=== PATIENT | male | born 1945 | race Two or more races ===

== ENCOUNTER 2020-06-15 10:28 | Outpatient (REF) | payer MEDICARE, OTHER, SELFPAY ==
--- NOTE | 2020-06-15 11:25 | XR_ITS ---
EXAMINATION: XR CHEST CLINICAL INFORMATION: Dyspnea. COMPARISON: None TECHNIQUE: 2 views of the chest were obtained. FINDINGS: No significant abnormality is noted involving the heart, lungs, mediastinum, bony thorax or soft tissues. XR/XR chest 2V IMPRESSION: No acute cardiopulmonary process.
== END 2020-06-15 10:29 | disposition home or self-care (01) ==
LOC: HO.XRAY 10:28
PROVIDERS: PCP Internal Medicine; Visit Provider Hospitalist
DX: R06.00 Dyspnea, unspecified (principal); G47.33 Obstructive sleep apnea (adult) (pediatric); J44.9 Chronic obstructive pulmonary disease, unspecified; Z99.89 Dependence on other enabling machines and devices
CPT/HCPCS: 71046; 99212

== ENCOUNTER → 2020-10-14 10:28 | Outpatient (BNVA) | payer MEDICARE, OTHER, SELFPAY | PROVIDERS: PCP Internal Medicine; Visit Provider Hospitalist | DX: J44.9 Chronic obstructive pulmonary disease, unspecified (principal); R06.00 Dyspnea, unspecified; G47.33 Obstructive sleep apnea (adult) (pediatric); Z99.89 Dependence on other enabling machines and devices; Z79.899 Other long term (current) drug therapy | CPT/HCPCS: 99212 ==

== ENCOUNTER → 2021-10-17 10:19 | Outpatient (BNVA) | payer MEDICARE, OTHER, SELFPAY | PROVIDERS: PCP Internal Medicine; Visit Provider Hospitalist | DX: G47.33 Obstructive sleep apnea (adult) (pediatric) (principal); J44.9 Chronic obstructive pulmonary disease, unspecified; J18.9 Pneumonia, unspecified organism; R91.1 Solitary pulmonary nodule; Z99.89 Dependence on other enabling machines and devices | CPT/HCPCS: 99212 ==

== ENCOUNTER → 2022-04-16 10:05 | Outpatient (BNVA) | payer MEDICARE, OTHER, SELFPAY | PROVIDERS: PCP Internal Medicine; Visit Provider Hospitalist | DX: G47.33 Obstructive sleep apnea (adult) (pediatric) (principal); J44.9 Chronic obstructive pulmonary disease, unspecified; R06.00 Dyspnea, unspecified; R91.1 Solitary pulmonary nodule; J18.9 Pneumonia, unspecified organism; Z99.89 Dependence on other enabling machines and devices | CPT/HCPCS: 99212 ==

== ENCOUNTER → 2022-08-08 14:22 | Outpatient (REF) | payer MEDICARE, OTHER, SELFPAY | LOC: HO.SL 14:22 | PROVIDERS: Visit Provider Hospitalist | DX: G47.33 Obstructive sleep apnea (adult) (pediatric) (principal); Z99.89 Dependence on other enabling machines and devices | CPT/HCPCS: 95806; 95811 ==

== ENCOUNTER → 2022-08-14 11:13 | Outpatient (BNVA) | payer MEDICARE, OTHER, SELFPAY | PROVIDERS: PCP Internal Medicine; Visit Provider Hospitalist | DX: G47.33 Obstructive sleep apnea (adult) (pediatric) (principal); J44.9 Chronic obstructive pulmonary disease, unspecified; J18.9 Pneumonia, unspecified organism; R06.00 Dyspnea, unspecified; R91.1 Solitary pulmonary nodule; Z99.89 Dependence on other enabling machines and devices | CPT/HCPCS: 99212 ==

== ENCOUNTER → 2022-08-24 19:30 | Outpatient (REF) | payer MEDICARE, OTHER, SELFPAY | LOC: HO.SL 19:30 | PROVIDERS: Visit Provider Hospitalist | DX: G47.33 Obstructive sleep apnea (adult) (pediatric) (principal); Z99.89 Dependence on other enabling machines and devices | CPT/HCPCS: 95811 ==

== ENCOUNTER → 2022-11-28 10:38 | Outpatient (BNVA) | payer MEDICARE, OTHER, SELFPAY | PROVIDERS: PCP Internal Medicine; Visit Provider Neurological Surgery | DX: M48.061 Spinal stenosis, lumbar region without neurogenic claudication (principal) | CPT/HCPCS: 99212 ==

== ENCOUNTER → 2022-12-06 14:14 | Outpatient (BNVA) | payer MEDICARE, OTHER, SELFPAY | PROVIDERS: PCP Internal Medicine; Visit Provider Hospitalist | DX: G47.33 Obstructive sleep apnea (adult) (pediatric) (principal); J44.9 Chronic obstructive pulmonary disease, unspecified; R06.00 Dyspnea, unspecified; R91.1 Solitary pulmonary nodule; E66.01 Morbid (severe) obesity due to excess calories; Z68.31 Body mass index [BMI] 31.0-31.9, adult; Z99.89 Dependence on other enabling machines and devices; Z79.899 Other long term (current) drug therapy | CPT/HCPCS: 99212 ==

== ENCOUNTER 2023-07-26 13:36 | Outpatient (AMB) | payer MEDICARE, OTHER, SELFPAY ==
[2023-07-26 13:47] VITALS: PULSE 78; O2SAT 94; BMI 31.9
--- NOTE | 2023-07-26 13:47 | MHC.OFFVIS ---
Intake Vital Signs 07/26/23 13:47 Height 5 ft 9 in Weight 215 lb 13.321 oz BMI 31.9 Pulse 78 Pulse Source Pulse Oximeter Pulse Oximetry (%) 94 Oxygen Delivery Method Room Air Intake Visit Reasons: josephine Relay Dispatcher Required: No Allergies No Known Allergies Allergy (Verified 07/26/23 13:49) HPI HPI Comments History of Present Illness Details The patient is a 77-year-old gentleman with a known history of morbid obesity, significant back pain and knee discomfort along with obstructive sleep apnea on CPAP. Apparently he has been struggling with the CPAP. Has been malfunctioning in breaking down multiple times. Recently he did get a loaner from his [employer] until finally get his CPAP back. The CPAP therapy continues to be affecting beneficial. Although he feels like he is not getting enough pressures at this time. We did request a download in appears that his AHI is below 5 and seems to be tolerating the CPAP well. In addition to that he does complaint of dyspnea on exertion. He has been working outside in a lot of projects and has been noticing that he has been having to stop due to his shortness of breath. Does use Advair twice a day and does have a rescue inhaler that he uses as needed. At this point he does not appear to have any significant wheezing although he may have some component of bronchospasms with the changes in the weather. Therefore, I will optimize her respiratory therapy to [facility]. The patient will go for chest x-ray and will reassess his condition in 2-3 months. 10/17/2021 the patient is here for a pulmonary follow-up visit. Since we last spoke sometime in August the patient started developing some right-sided pleuritic chest discomfort. He went to waiting at [facility]. There he did undergo a CT scan of the chest that was personally by me. Appears to have what appears to be airspace disease in the right base along with nodular densities in that area along with small pleural effusion which appears to be reactive. He was diagnosed with pneumonia the patient was treated with antibiotics. Patient did start feeling better the pain did almost completely resolved. in the meantime the patient started developing again worsening cough and chest congestion again. He is concerned the symptoms are coming back so quickly. He is also concerned because next week he is going to have hand surgery. Therefore go ahead and treated for bronchitis at home. Hold off on any prednisone since she is going to have surgery. Although I will increase his Trelegy to the maximum dose of 200. based on the CT scan findings suggesting the pneumonia and a nodular density measuring more than a cm in size will go ahead and repeat the CT scan in 3 months time to make sure there is resolution of the process. If the process is there or concerning appearance additional diagnostic interventions will be requested. In the meantime the patient continues use CPAP. The CPAP therapy has been affecting beneficial. However he still waiting for his respiratory ext replacement machine. 04/16/2022 the patient is here for a pulmonary follow-up visit. Overall he feels better from a respiratory status. He still complaining of a cough productive in nature. [id number] severity. The patient did have a CT scan of the chest that was personally by me back in December demonstrating interval improvement of the airspace disease. 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 Explained to him that this could be resulting in some coughing. The patient has been struggling with his sleep apnea. The CPAP therapy has been very effective for him. However, his machine is no longer working. The patient needs to have a replacement machine at this time. He does have a dream station that he is concerned about the recall. He does not want to use any [employer] machine at this time. I will go ahead and submit a new order for a new CPAP machine. In addition to this, the patient cut his finger on his right hand while he was cleaning up last base. He had significant bleeding that was on Saturday. He was reluctant to go to the ER so therefore his but at tight pressure dressing because of the bleeding. Head and removed the dressing today and was still extensively bleeding 3 days after the event. The area was significantly open. I cleaned it with some Betadine and then Steri-Strips to hold it close in addition to some dressing. I did recommend that he go to the ER immediately to have that looked that further. He was going to do so. 08/14/2022 the patient is here for a pulmonary follow-up visit. The patient overall is feeling better. He was recently hospitalized at [facility] with congestive heart failure. His BNP was significantly elevated. His chest x-ray demonstrated perihilar congestion in bilateral pulmonary edema. His echocardiogram demonstrated a valvular disease including moderate mitral stenosis and [id number] aortic regurgitation. His EF was preserved. He was diuresed and had a significant amount of weight loss between 20-30 lb per the patient's statement. Patient overall is feeling better. He is still struggling with his sleep. His CPAP machine is no longer working. The patient definitely needs to CPAP because of his significant cardiovascular risk factors. He did have a home sleep study which we personally reviewed. The patient had an AHI of 58 with significant hypoxia and significant tachycardia. He does desaturate below 88% for about an hour and half. Therefore in view of his very severe study I do believe that a titration study will be warranted in order to make sure that we provide him with the best PAP therapy and to see if he still needs oxygen supplementation. Will try to request an urgent study and follow up once available. In the meantime he continues with respiratory therapy. Seems to be stable in using his medications with good adherence. 07/26/2023 the patient is here for a pulmonary follow-up visit. Overall the patient has been doing better from a respiratory status. He is using his APAP. He has been tolerating it well. We did download the machine. It appears that his AHI the 1.8. He is tolerating his mask and having less mouth dryness. He is also using the Trelegy inhale at the lower doser. No issues with thrush. No recent exacerbations. He has had significant weight loss after having a bowel rection. He is doing better at this time. [facility] Medical History (Updated 04/16/22 @ 13:03 by Kike Ballard MD) Pulmonary nodule Pneumonia JOSEPHINE on CPAP Asthma-COPD overlap syndrome Dyspnea Social History (Updated 10/17/21 @ 10:42 by GENO Klein) Patient Tobacco Use Status: Former Tobacco user Tobacco use type: Cigarette Years Smoked: 10+ years Review of Systems Const Denies daytime sleepiness, Denies night sweats, Denies stops breathing during sleep and Reports weight loss ENT Denies change in voice, Denies lip swelling, Denies mouth pain, Reports nasal congestion, Reports nasal discharge and Denies tongue swelling Card Denies chest pain and Reports dyspnea on exertion Resp Denies change in phlegm color, Denies chest congestion, Reports cough, Reports dyspnea on exertion and Denies wheezing GI Denies abdominal pain Musc Denies no additional complaints Skin/Breast Reports bleeding lesions Neuro Denies Neuro-related abnormal movements Psych Denies no additional complaints Alex/Lymph Denies easy bleeding and Denies lymphadenopathy Aller/Immun Denies lip swelling, Denies tongue swelling and Denies wheezing Physical Exam Vital Signs: Last Vital Signs Pulse 78 07/26/23 13:47 Pulse Ox 94 07/26/23 13:47 Oxygen Delivery Method Room Air 07/26/23 13:47 BMI result Body Mass Index 31.9 Const General: alert Neck Neck: Yes normal visual inspection, Yes full ROM and Yes no lymphadenopathy Chest Chest palpation & inspection: normal inspection of the chest Resp Auscultation: no rhonchi and diminished lung sounds Cardio Rate: regular rate Rhythm: regular rhythm Heart sounds: S1 normal heart sound present and S2 normal heart sound present GI Palpation (GI): Soft to palpation and nontender Auscultation: normal bowel sounds General: Yes no CVA tenderness Back/Spine/Pelvis Back: no CVA tenderness Skin General skin exam: rashes and/or lesions noted Assessment & Plan Assessment & Plan (1) JOSEPHINE on CPAP: Code(s): G47.33 - Obstructive sleep apnea (adult) (pediatric); Z99.89 - Dependence on other enabling machines and devices (2) Asthma-COPD overlap syndrome: Code(s): J44.9 - Chronic obstructive pulmonary disease, unspecified (3) Dyspnea: Code(s): R06.00 - Dyspnea, unspecified Qualifiers: Dyspnea type: dyspnea on exertion Qualified Code(s): R06.00 - Dyspnea, unspecified (4) Pulmonary nodule: Code(s): R91.1 - Solitary pulmonary nodule Plan continue Trelegy 100 RASHAUN as needed diuresis as tolerated Low sodium diet continue APAP 6-16 AHI is good, doing very well F/U 12 months Coding Level of Care Code Est Pt Level 4 (35923) Diagnoses JOSEPHINE on CPAP G47.33; Z99.89 Asthma-COPD overlap syndrome J44.9 Dyspnea on exertion R06.00 Dyspnea type: dyspnea on exertion Pulmonary nodule R91.1 Time Spent (min) 16
== END 2023-07-26 14:07 | disposition home or self-care (01) ==
PROVIDERS: PCP Internal Medicine; Visit Provider Hospitalist
DX: G47.33 Obstructive sleep apnea (adult) (pediatric) (principal); Z99.89 Dependence on other enabling machines and devices; J44.9 Chronic obstructive pulmonary disease, unspecified; R06.00 Dyspnea, unspecified; R91.1 Solitary pulmonary nodule
CPT/HCPCS: 99214

== ENCOUNTER → 2023-07-26 13:36 | Outpatient (BNVA) | payer MEDICARE, OTHER, SELFPAY | PROVIDERS: PCP Internal Medicine; Visit Provider Hospitalist | DX: G47.33 Obstructive sleep apnea (adult) (pediatric) (principal); J44.9 Chronic obstructive pulmonary disease, unspecified; R06.00 Dyspnea, unspecified; R91.1 Solitary pulmonary nodule; Z79.899 Other long term (current) drug therapy; Z99.89 Dependence on other enabling machines and devices | CPT/HCPCS: 99212 ==

== ENCOUNTER 2024-07-01 10:43 | Outpatient (AMB) | payer MEDICARE, OTHER, SELFPAY ==
--- NOTE | 2024-07-01 10:44 | MHC.OFFVIS ---
Vital Signs 07/01/24 10:45 Weight 223 lb 12.307 oz BP 122/60 Blood Pressure Location Rt brachial Position Sitting Pulse 74 Pulse Source Pulse Oximeter Pulse Oximetry (%) 94 Oxygen Delivery Method Room Air Intake Visit Reasons: josephine Allergies rosuvastatin Adverse Reaction (Severe, Verified 07/01/24 10:52) Muscle Pain Medication List - Last Reconciled 07/01/24 by Vicki Hair LPN albuterol sulfate 90 mcg/actuation 1 puff PO Q4H PRN aspirin 81 mg PO DAILY CPAP (CPAP Machine/Device) As directed dutasteride 0.5 mg PO DAILY empagliflozin (Jardiance) 10 mg PO DAILY exenatide microspheres ER mg subcut QWEEK uucbkjwkpcs-wrqzuexfo-snkfjpvh 100-62.5-25 mcg (Trelegy Ellipta) 1 ea PO DAILY furosemide 20 mg PO DAILY loratadine (Claritin) 10 mg PO DAILY lorazepam 0.5 mg PO BEDTIME PRN losartan 25 mg PO DAILY metoprolol tartrate 50 mg PO BID montelukast (Singulair) 10 mg PO BEDTIME 30 days omeprazole mg PO sertraline 50 mg PO DAILY tamsulosin mg PO HPI Comments Details: The patient is a 78-year-old gentleman with a known history of morbid obesity, significant back pain and knee discomfort along with obstructive sleep apnea on CPAP. Apparently he has been struggling with the CPAP. Has been malfunctioning in breaking down multiple times. Recently he did get a loaner from his [email or web address] until finally get his CPAP back. The CPAP therapy continues to be affecting beneficial. Although he feels like he is not getting enough pressures at this time. We did request a download in appears that his AHI is below 5 and seems to be tolerating the CPAP well. In addition to that he does complaint of dyspnea on exertion. He has been working outside in a lot of projects and has been noticing that he has been having to stop due to his shortness of breath. Does use Advair twice a day and does have a rescue inhaler that he uses as needed. At this point he does not appear to have any significant wheezing although he may have some component of bronchospasms with the changes in the weather. Therefore, I will optimize her respiratory therapy to Trelegy. The patient will go for chest x-ray and will reassess his condition in 2-3 months. 10/17/2021 the patient is here for a pulmonary follow-up visit. Since we last spoke sometime in August the patient started developing some right-sided pleuritic chest discomfort. He went to waiting at [facility]. There he did undergo a CT scan of the chest that was personally by me. Appears to have what appears to be airspace disease in the right base along with nodular densities in that area along with small pleural effusion which appears to be reactive. He was diagnosed with pneumonia the patient was treated with antibiotics. Patient did start feeling better the pain did almost completely resolved. in the meantime the patient started developing again worsening cough and chest congestion again. He is concerned the symptoms are coming back so quickly. He is also concerned because next week he is going to have hand surgery. Therefore go ahead and treated for bronchitis at home. Hold off on any prednisone since she is going to have surgery. Although I will increase his Trelegy to the maximum dose of 200. based on the CT scan findings suggesting the pneumonia and a nodular density measuring more than a cm in size will go ahead and repeat the CT scan in 3 months time to make sure there is resolution of the process. If the process is there or concerning appearance additional diagnostic interventions will be requested. In the meantime the patient continues use CPAP. The CPAP therapy has been affecting beneficial. However he still waiting for his respiratory ext replacement machine. 04/16/2022 the patient is here for a pulmonary follow-up visit. Overall he feels better from a respiratory status. He still complaining of a cough productive in nature. Teii-va-ggobqkmm severity. The patient did have a CT scan of the chest that was personally by me back in December demonstrating interval improvement of the airspace disease. 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 Explained to him that this could be resulting in some coughing. The patient has been struggling with his sleep apnea. The CPAP therapy has been very effective for him. However, his machine is no longer working. The patient needs to have a replacement machine at this time. He does have a dream station that he is concerned about the recall. He does not want to use any Respironics machine at this time. I will go ahead and submit a new order for a new CPAP machine. In addition to this, the patient cut his finger on his right hand while he was cleaning up last base. He had significant bleeding that was on Saturday. He was reluctant to go to the ER so therefore his but at tight pressure dressing because of the bleeding. Head and removed the dressing today and was still extensively bleeding 3 days after the event. The area was significantly open. I cleaned it with some Betadine and then Steri-Strips to hold it close in addition to some dressing. I did recommend that he go to the ER immediately to have that looked that further. He was going to do so. 08/14/2022 the patient is here for a pulmonary follow-up visit. The patient overall is feeling better. He was recently hospitalized at [facility] with congestive heart failure. His BNP was significantly elevated. His chest x-ray demonstrated perihilar congestion in bilateral pulmonary edema. His echocardiogram demonstrated a valvular disease including moderate mitral stenosis and iqtr-fk-vxqihbic aortic regurgitation. His EF was preserved. He was diuresed and had a significant amount of weight loss between 20-30 lb per the patient's statement. Patient overall is feeling better. He is still struggling with his sleep. His CPAP machine is no longer working. The patient definitely needs to CPAP because of his significant cardiovascular risk factors. He did have a home sleep study which we personally reviewed. The patient had an AHI of 58 with significant hypoxia and significant tachycardia. He does desaturate below 88% for about an hour and half. Therefore in view of his very severe study I do believe that a titration study will be warranted in order to make sure that we provide him with the best PAP therapy and to see if he still needs oxygen supplementation. Will try to request an urgent study and follow up once available. In the meantime he continues with respiratory therapy. Seems to be stable in using his medications with good adherence. 07/26/2023 the patient is here for a pulmonary follow-up visit. Overall the patient has been doing better from a respiratory status. He is using his APAP. He has been tolerating it well. We did download the machine. It appears that his AHI the 1.8. He is tolerating his mask and having less mouth dryness. He is also using the Trelegy inhale at the lower doser. No issues with thrush. No recent exacerbations. He has had significant weight loss after having a bowel rection. He is doing better at this time. 07/01/2024 the patient is here for a pulmonary follow-up visit. Overall the he patient is doing well. The CPAP therapy has been affecting beneficial. He does use it more than 4 hours a night. The patient's AHI is 5.5 although 1.5 events per hour were central. The patient's machine is set up 6-16 and he seems to require additional pressures. Therefore I did adjust the machine slightly higher at 8-18. He also has issues with his nostril on the left were closes because that he had an injury to that nostril. So therefore he has been setting up his nostril with a plastic stent like piece she keep the nostril open. I did not advise him to continue doing that. Will switch him to the PEEP 30 I mask and therefore with the nasal pillows he will be able to stent that nostril open with the actual mask. From a breathing standpoint seems to be doing well on the Trelegy. Seems not to require his rescue inhaler so therefore will continue that Trelegy daily as it is helping his respiratory symptoms. He continues to lose weight which is good otherwise he feels healthy. The last imaging study that we had was back in 2021. Therefore, in 6 months when he returns will request a chest x-ray. [facility] Medical History (Updated 04/16/22 @ 13:03 by Kike Ballard MD) Pulmonary nodule Pneumonia JOSEPHINE on CPAP Asthma-COPD overlap syndrome Dyspnea Social History (Updated 10/17/21 @ 10:42 by GENO Klein) Patient Tobacco Use Status: Former Tobacco user Tobacco use type: Cigarette Years Smoked: 10+ years Review of Systems Const Denies daytime sleepiness, Denies night sweats, Denies stops breathing during sleep and Reports weight loss ENT Denies change in voice, Denies lip swelling, Denies mouth pain, Reports nasal congestion, Reports nasal discharge and Denies tongue swelling Card Denies chest pain and Reports dyspnea on exertion Resp Denies change in phlegm color, Denies chest congestion, Reports cough, Reports dyspnea on exertion and Denies wheezing GI Denies abdominal pain Musc Denies no additional complaints Skin/Breast Reports bleeding lesions Neuro Denies Neuro-related abnormal movements Psych Denies no additional complaints Alex/Lymph Denies easy bleeding and Denies lymphadenopathy Aller/Immun Denies lip swelling, Denies tongue swelling and Denies wheezing Physical Exam Vital Signs: Last Vital Signs Pulse 74 12/04/24 10:45 BP 122/60 07/01/24 10:45 Pulse Ox 94 07/01/24 10:45 Oxygen Delivery Method Room Air 07/01/24 10:45 Const General: alert Neck Neck: Yes normal visual inspection, Yes full ROM and Yes no lymphadenopathy Chest Chest palpation & inspection: normal inspection of the chest Resp Auscultation: no rhonchi and diminished lung sounds Cardio Rate: regular rate Rhythm: regular rhythm Heart sounds: S1 normal heart sound present and S2 normal heart sound present GI Palpation (GI): Soft to palpation and nontender Auscultation: normal bowel sounds General: Yes no CVA tenderness Back/Spine/Pelvis Back: no CVA tenderness Skin General skin exam: rashes and/or lesions noted Assessment & Plan Assessment & Plan (1) JOSEPHINE on CPAP: Code(s): G47.33 - Obstructive sleep apnea (adult) (pediatric); Z99.89 - Dependence on other enabling machines and devices Category: Medical (2) Asthma-COPD overlap syndrome: Code(s): J44.9 - Chronic obstructive pulmonary disease, unspecified Category: Medical (3) Dyspnea: Code(s): R06.00 - Dyspnea, unspecified Category: Medical Qualifiers: Dyspnea type: dyspnea on exertion Qualified Code(s): R06.00 - Dyspnea, unspecified (4) Pulmonary nodule: Code(s): R91.1 - Solitary pulmonary nodule Category: Medical Plan continue Trelegy 100 RASHAUN as needed diuresis as tolerated Low sodium diet adjusted APAP 6-16->8-18, recommenting p30i mask CXR prior to next visit F/U 8-12 months Orders: Orders XR chest 2V Today J44.9 - Chronic obstructive pulmonary disease, unspecified Coding Level of Care Code Est Pt Level 4 (33898) Diagnoses JOSEPHINE on CPAP G47.33; Z99.89 Asthma-COPD overlap syndrome J44.9 Dyspnea on exertion R06.00 Dyspnea type: dyspnea on exertion Pulmonary nodule R91.1 Time Spent (min) 17
[2024-07-01 10:45] VITALS: BP 122/60; PULSE 74; O2SAT 94
== END 2024-07-01 11:14 | disposition home or self-care (01) ==
PROVIDERS: PCP Internal Medicine; Visit Provider Hospitalist
DX: G47.33 Obstructive sleep apnea (adult) (pediatric) (principal); Z99.89 Dependence on other enabling machines and devices; J44.9 Chronic obstructive pulmonary disease, unspecified; R06.00 Dyspnea, unspecified; R91.1 Solitary pulmonary nodule
CPT/HCPCS: 99214

== ENCOUNTER → 2024-07-01 10:43 | Outpatient (BNVA) | payer MEDICARE, OTHER, SELFPAY | PROVIDERS: PCP Internal Medicine; Visit Provider Hospitalist | DX: J44.9 Chronic obstructive pulmonary disease, unspecified (principal); R06.00 Dyspnea, unspecified; R91.1 Solitary pulmonary nodule; G47.33 Obstructive sleep apnea (adult) (pediatric); Z99.89 Dependence on other enabling machines and devices | CPT/HCPCS: 99212 ==

== ENCOUNTER 2025-03-11 13:10 | Outpatient (AMB) | payer MEDICARE, SELFPAY ==
--- OUTSIDE RECORDS SUMMARY | 2024-06-17 10:30 | XMS_ITS | Encounter Summary ---
Author Name [facility] Organization [facility] Address [address] [place] [address] Care Team Providers Care Senior Mechanical Engineer Name Role Phone EDER ALVA Primary Care Provider Unavail able Insurance Providers: All historical and current Section Date Range: From patient's date of to the date document was created. This section includes the names of all active insurance providers for the patient. Insurance Provider Type of Coverage Plan Name Start of Policy Coverage End of Policy Coverage Group Number Member ID Insurance Provider's Telephone Number Policy Turcios's Name Patient's Relationship to Policy Turcios MEDICARE (WNR) MEDICARE (M) PART A Jul 29, 2010 PART A [id number] [phone] NITA, NUNU PATIENT MEDICARE (WNR) MEDICARE (M) PART B Jul 29, 2010 PART B [id number] NITA, NUNU PATIENT MEDICARE (WNR) MEDICARE (M) PART A Jul 29, 2010 PART A [id number] [phone] NITA, NUNU PATIENT MEDICARE (WNR) MEDICARE (M) PART B Jul 29, 2010 PART B [id number] NITA, NUNU PATIENT [employer] LOCAL [phone] PREFERRED PROVIDER ORGANIZAT ION (PPO) LOCAL [phone] Apr 23, 2004 [id number] NITA, NUNU PATIENT Selected Encounter This section includes the information on record at [place] for the Encounter. Date/Time Encounter Type Encounter Description Reason Provider Source Jun 17, 2024 02:30 PM OFFICE O/P EST MOD 30 MIN [facility] - IND ICD-10-CM F43.12 Post-traumatic stress disorder, chronic WENDI CHILDRESSSHELTON Parkinson Collette Encounter Template Text not used by [place] Assessments - Encounter Diagnoses This section includes the primary and secondary diagnoses documented for the Encounter. Date/Time Primary/Secondary Diagnosis Diagnosis Name Provider Source Jun 17, 2024 03:05 PM PRIMARY Post-traumatic stress disorder, chronic [facility] CHIL[facility] Plan of Treatment: Future Appointments (+ 6 months) and Future Tests (+/- 45 days) The Plan of Treatment section includes future care activities for the patient from all [place] [facility]. This section includes future appointments and future orders which are active, pending or scheduled. Future Appointments This section includes appointments that were scheduled to occur 6 months from the date of the Encounter, up to a maximum of 20 appointments. The data comes from all [place] treatment facilities. Appointment Date/Time Appointment Type Appointme nt Facility Name Aug 25, 2024 03:15 PM [facility]UL[facility]ORY [place]ICINE [place] [facility] [place] [facility] Aug 27, 2024 12:30 PM AMBULATORY - MEDICINE [facility] [place] [facility] Aug 31, 2024 01:15 PM AMBULATORY - MEDICINE [facility] [place] [facility] Aug 31, 2024 01:30 PM AMBULATORY - MEDICINE [facility] [place] [facility] Sep 15, 2024 10:00 AM AMBULATORY - MEDICINE [facility] [place] [facility] Sep 29, 2024 09:00 AM AMBULATORY - MEDICINE [facility] [place] [facility] Oct 16, 2024 02:00 PM AMBULATORY - [facility]RY [facility] Oct 20, 2024 01:00 PM AMBULATORY - MEDICINE [facility] Nov 03, 2024 11:00 AM AMBULATORY - MEDICINE [facility] [place] [facility] November 27, 2024 11:00 AM AMBULATORY - MEDICINE [facility] [place] [facility] December 15, 2024 09:30 AM AMBULATORY - MEDICINE [facility] [place] [facility] Social History: Smoking Status (Most current) and Tobacco Use (All prior to encounter date) This section includes the most current, and the historical, smoking and tobacco- related health factors from the [place] facility where the Encounter took place. Current Smoking Status This section includes the most current smoking, or tobacco-related health factor, from the [place] facility where the Encounter took place. Date/Time Current Smoking Status Comment Facil ity Feb 10, 2024 02:00 PM VA-TOBACCO FORMER USER [facility] Tobacco Use History This section includes a history of the smoking, or tobacco-related health factors, that were collected on or before the date of the Encounter. The data comes from the [place] facility where the Encounter took place. Date/Time Smoking Status/Tobacco Use Comment F acility Feb 10, 2024 02:00 PM VA-TOBACCO QUIT 15 YRS OR MORE [facility] Jan 01, 2023 03:00 PM VA-TOBACCO FORMER USER [facility] Jan 01, 2023 03:00 PM VA-TOBACCO QUIT 15 YRS OR MORE [facility] Aug 11, 2020 11:30 AM VA-TOBACCO FORMER USER [facility] Aug 11, 2020 11:30 AM VA-TOBACCO QUIT 15 YRS OR MORE [facility] Mar 23, 2019 11:21 AM VA-TOBACCO FORMER USER [facility] Mar 23, 2019 11:21 AM VA-TOBACCO QUIT 5 TO < 15 YRS [facility] May 02, 2018 11:30 AM VA-TOBACCO FORMER USER [facility] May 02, 2018 11:30 AM VA-TOBACCO QUIT 5 TO < 15 YRS [facility] Jul 09, 2017 10:50 AM QUIT TOBACCO USE > 7 YEARS AGO [facility] May 25, 2016 10:04 AM QUIT TOBACCO USE > 7 YEARS AGO [facility] Feb 14, 2016 04:42 PM QUIT TOBACCO USE 1 -7 YEARS AGO quit 6 yrs ago [facility] Dec 27, 2014 09:04 AM QUIT TOBACCO USE > 7 YEARS AGO [facility] Oct 27, 2013 09:06 AM QUIT TOBACCO USE 1 -7 YEARS AGO [facility] Oct 07, 2012 08:55 AM QUIT TOBACCO USE 1 -7 YEARS AGO [facility] Jul 17, 2012 08:51 AM QUIT TOBACCO USE 1 -7 YEARS AGO [facility] Sep 21, 2010 09:07 AM QUIT TOBACCO USE 1 -7 YEARS AGO [facility] Aug 30, 2009 08:29 AM QUIT TOBACCO USE 1 -7 YEARS AGO quit four years ago. [facility] Aug 19, 2008 02:00 PM QUIT TOBACCO USE 1 -7 YEARS AGO [facility] Dec 29, 2007 01:19 PM QUIT TOBACCO USE IN PAST YEAR [facility] May 26, 2007 09:43 AM V1-PT DECLINES REF TO TOBACCO CESS PRGM [facility] May 26, 2007 09:43 AM V1-PT DECLINES TOB ACCO CESSATION MEDS [facility] May 26, 2007 09:43 AM V1-PT READY TO LIEN T TOBACCO USE [facility] Mar 19, 2007 10:44 AM CURRENT SMOKER Currently 1/2 pk daily. [facility] Mar 01, 2006 02:10 PM QUIT TOBACCO USE 1 -7 YEARS AGO [facility] Jun 30, 2003 11:59 AM QUIT TOBACCO USE IN PAST Y EAR Not smoking todate. [facility] Nov 05, 2001 03:19 PM QUIT TOBACCO USE IN PAST YEAR [facility] Encounter Notes: All associated encounter notes This section contains the clinical notes associated to the Encounter. Date/Time Encounter Note(s) Provider Source Jun 17, 2024 06:38 PM MENTAL HEALTH CHYNA TMENT PLAN NOTE: LOCAL TITLE: MH TREATMENT PLAN STANDARD TITLE: MENTAL HEALTH TREATMENT PLAN NOTE DATE OF NOTE: JUN 17, 2024@18:38:10 ENTRY DATE: JUN 17, 2024@18:38:53 AUTHOR: ARIES CHILDRESS EXP COSIGNER: URGENCY: STATUS: COMPLETED MH TREATMENT PLAN - May, @ 06:38PM Visit Date: May, @ 14:30 - BRAN/GUILHERME/SALMA/MONROE CLAY GRINDER: ARIES CHILDRESS / [place] MARTA Lechuga TREATMENT PLAN: Problem: ptsd/depression/anxiety Status: ACTIVE Goal: maintain improved ptsd/depression/anxiety symptoms Status: ACTIVE Objective: maintain improved ptsd/depression/anxiety symptoms, as measured by pt report Status: ACTIVE Intervention: psychopharm and encourage psychotherapy Status: ACTIVE Discipline: SPO-MHC Time Frame: PRN Providers: : PSYCHIATRIST DISCIPLINE: SPOPC-MHC Entered Treatment: 04/26/2020 @ 12:16PM Review Date: 05/25/2022 Anticipated Discharge: None INTERDISCIPLINARY TEAM: ARIES CHILDRESS: PSYCHIATRIST COMMUNICATION: Relevant treatment options, including evidence-based interventions, were considered and discussed with the [facility]. YES A copy of the treatment plan was given to the [facility]. NO Risks, benefits, and potential complications were discussed with the [facility]. YES /gilebrto/ ARIES CHILDRESS MD STAFF PSYCHIATRIST Signed: 06/17/2024 18:38 [facility] CHILDRESS [facility] Jun 17, 2024 02:36 PM PSYCHIATRY NOTE: LOCAL TITLE: PSYCHIATRY NOTE STANDARD TITLE: PSYCHIATRY NOTE DATE OF NOTE: JUN 17, 2024@14:36 ENTRY DATE: JUN 17, 2024@14:36:46 AUTHOR: ARIES CHILDRESS EXP COSIGNER: URGENCY: STATUS: COMPLETED 30 min for encounter, including chart review, interview, charting chart reviewed Patient seen alone and with his , who helps patient with medication. Patient stable, less stress lately. Good mood. Denies depression. Affect bright, appropriate. Anxiety and PTSD symptoms improved. He denies SI and violent ideation. No h/o psychotic symptoms. Well organized. No paranoid or delusional content presented. Future oriented. Speech normal/fluent. Cognitive exam grossly unchanged/intact. Has interests. Pleasant, talkative. Usual good sense of humor, which remains a good coping strategy for patient. No slowing noted. Good hygiene. Another discussion about the psych medication, and pt reports good response and well tolerated, wants to keep the same. See below. He denies psych med side effects. Denies daytime sedation. Reports psych med compliance. Denies alcohol and drug use; except previously reported occasional gummy/cannabis As noted previously, pt's is very supportive Active problems - Computerized Problem List is the source for the followin. Exposure to potentially hazardous substance ([facility] [id number]) 2. Allergic Rhinitis ([facility] [id number]) 3. COPD - Chronic Obstructive Pulmonary Disease ([facility] 05350027) 4. Benign Prostatic Hypertrophy with Outflow Obstruction ([facility] [id number]) 5. History of male erectile disorder 6. Obstructive sleep apnea syndrome 7. History of polyp of colon 8. Dyspnea on exertion 9. Old myocardial infarction 10. Panic disorder 11. Diabetes mellitus (SNOMED CT 02646138) 12. Obesity (SNOMED CT 335544236) 13. Impaired Fasting Glucose 14. Benign essential hypertension (SNOMED CT 2654703) 15. Dysthymia (or Depressive neurosis) 16. Hyperlipidemia (SNOMED CT 72885807) 17. Tinnitus * 18. Tear of medial cartilage or meniscus of knee, current 19. Insomnia with sleep apnea 20. Tobacco dependence, in Remission 21. Osteoarthritis (SNOMED CT 211737285) 22. Rotator Cuff Tear 23. Dermatitis, Atopic 24. Puri's esophagus 25. H/o Sleep Apnea 26. H/o Exposure to agent [place] 27. Hypertrophy (Benign) of Prostate without Urinary obstruction 28. Allergic Rhinitis 29. Posttraumatic stress disorder (SNOMED CT 58193827) Active Outpatient Medications (including Supplies): Active Outpatient Medications Status ======= 1) MONTELUKAST NA 10MG TAB TAKE ONE TABLET BY MOUTH ONCE ACTIVE DAILY FOR ASTHMA 2) SERTRALINE HCL 100MG TAB TAKE ONE AND ONE-HALF ACTIVE TABLETS BY MOUTH ONCE DAILY Active Non-VA Medications Status ======= 1) Non-VA ALBUTEROL 90MCG (CFC-F) 200D ORAL INHL 2 PUFFS ACTIVE BY MOUTH EVERY 6 HOURS NEEDED 2) Non-VA ASPIRIN 81MG EC TAB 81MG BY MOUTH DAILY ACTIVE 3) Non-VA BUDESONIDE (EQV-UCERIS)PA-F TAB,SA BY ACTIVE MOUTH 4) Non-VA COENZYME Q10 CAP/TAB BY MOUTH ACTIVE 5) Non-VA DULAGLUTIDE 1.5MG/0.5ML INJ PEN 1.5MG ACTIVE SUBCUTANEOUSLY ONCE A WEEK 6) Non-VA EMPAGLIFLOZIN TAB,ORAL BY MOUTH ACTIVE 7) Non-VA EVOLOCUMAB (REPATHA) PA-F INJ,SOLN ACTIVE SUBCUTANEOUSLY 8) Non-VA FUROSEMIDE TAB BY MOUTH ACTIVE 9) Non-VA GABAPENTIN TAB BY MOUTH ACTIVE 10) Non-VA HYDROXYCHLOROQUINE SULFATE TAB BY MOUTH ACTIVE 11) Non-VA LORATADINE 10MG TAB 10MG BY MOUTH ONCE DAILY ACTIVE 12) Non-VA LOSARTAN POTASSIUM TAB BY MOUTH ACTIVE 13) Non-VA MELATONIN 5MG CAP/TAB 5MG BY MOUTH AT BEDTIME ACTIVE NEEDED 14) Non-VA MELOXICAM TAB BY MOUTH ACTIVE 15) Non-VA METFORMIN HCL TAB,ORAL BY MOUTH ACTIVE 16) Non-VA METOPROLOL TARTRATE 25MG TAB 25MG BY MOUTH ACTIVE TWICE DAILY 17) Non-VA OMEPRAZOLE 20MG EC CAP 20MG BY MOUTH ONCE ACTIVE DAILY 18) Non-VA OTHER CAP/TAB AVODART BEDTIME ACTIVE 19) Non-VA OTHER CAP/TAB CBD BY MOUTH ACTIVE 20) Non-VA TAMSULOSIN HCL 0.4MG CAP 0.4MG BY MOUTH TWICE ACTIVE DAILY 21) Non-VA TRELEGY ELLIPTA 200/62.5/25MCG INH 30D 1 ACTIVE INHALATION BY MOUTH ONCE DAILY [address] [facility]aud[facility] outside [facility] PAST PSYCH MEDICATION HX: medication hx for insomnia -- neurontin not helpful for for sleep; patient did not like the effect of trazodone; pt reports melatonin not help sleep; trazodone not helpful for sleep in past; pt tried melatonin -- increased nightmares prozac buspar trazodone effexor Ativan -- helpful Ambien DIAGNOSIS: dsm-5 PTSD, chronic--70 % sc --[place] -- due to combat including compound being overrun Unspecified Depressive DO Panic do Sleep apnea --previously stated uses cpap every night Chronic pain PLAN: Performed careful risk assessment. See C-SSRS 07/2023 - same today The pt is probably low risk for suicide or violence -- the patient denied suicidal and violent ideation, but the [facility] Crisis Line information and number were reviewed w patient as a precaution. The patient also understands to call 911 or to go to ER in the event of an emergency. The patient again declined referral to psychotherapy for PTSD and depression and anxiety CONTINUE ZOLOFT 150 MG DAILY, good response for depression, anxiety and PTSD ATIVAN 0.5 MG EVERY 24 HOURS NEEDED FOR ANXIETY. Good response. Takes on a very occasional basis for severe anxiety when other anxiety reduction strategies do not work. Does not óscar refill now as noted last appt, patient started on his own MELATONIN 5 mg nightly over-the- counter as needed for insomnia with good response. Advised patient about risk of next-day sedation, patient denies side effects. rtc 4 mo; or call sooner or come to open access sooner. The discussion with patient about treatments including medications involved shared decision making. The patient was educated about the rationale and plan for the psychiatric medications. Medication instructions were reviewed with the patient. Alternatives to treatment were discussed with the patient. The side effect profile of the psychiatric medications was reviewed with the patient. This also included discussion of potential drug interactions associated with psychiatric medication. The patient discussed/verbalized back the understanding of the medication, side effects, and the plan/instructions, and the patient asked good questions. The patient demonstrated reasonable understanding of the medication side effects and the above-mentioned issues. The benefits of psychiatric medications outweigh risks for this patient. The patient consents to medication treatment. I asked the patient to call me or to come to open access if the patient does not like the effect of psychiatric medication or if has side effects with psychiatric medication. I previously educated the patient about the side effect profile of the benzodiazepine, See prior notes by me I previously educated the patient about the importance of using cpap for sleep apnea -- pt previously stated that he uses CPAP every night Previously offered pt CBT for insomnia -- pt declined Consider neuropsych testing to assess possible mild memory impairment, but pt states this better -- does not want neuropsych testing Medication Reconciliation: Outpatient: Has the patient been taking medications as documented in the EMLR? YES: The patient has been taking medications as documented in the EMLR. Essential Medication List for Review used to complete this medication reconciliation. INCLUDED IN THIS LIST: Alphabetical list of active outpatient prescriptions [facility]ensed from this [facility] (local) and dispensed from another [place] or [facility] facility (remote) as well as inpatient orders (local, pending and active), local clinic medications, locally documented non-VA medications, and local prescriptions that have or been discontinued in the past 90 days. - All changes in medications, including all non-VA/Herbal/OTC medications were entered into CPRS. - If there were any medications the patient should no longer take, they were discontinued. - The patient/caregiver was instructed to update this list, discard old lists, and take this list to the next appointment, whether with a VA or non-VA provider. /gilberto/ ARIES CHILDRESS MD STAFF PSYCHIATRIST Signed: 06/17/2024 15:05 ARIES CHILDRESS
[2025-03-11 13:13] VITALS: BP 120/64; PULSE 71; O2SAT 94; BMI 32.4
--- NOTE | 2025-03-11 13:13 | A.OFFVIS_ITS ---
Vital Signs 03/11/25 13:13 Height 5 ft 9 in Weight 219 lb 5.759 oz BMI 32.4 BP 120/64 Blood Pressure Location Lt brachial Position Sitting Pulse 71 Pulse Oximetry (%) 94 Oxygen Delivery Method Room Air Intake Visit Reasons: Obstructive sleep apnea Measuring Machine Operator Required: No Accompanied by: Self / Same As Patient Allergies rosuvastatin Adverse Reaction (Severe, Verified 03/11/25 13:16) Muscle Pain HPI Comments Details: The patient is a 79 year-old gentleman with a known history of morbid obesity, significant back pain and knee discomfort along with obstructive sleep apnea on CPAP. Apparently he has been struggling with the CPAP. Has been malfunctioning in breaking down multiple times. Recently he did get a loaner from his [employer] until finally get his CPAP back. The CPAP therapy continues to be affecting beneficial. Although he feels like he is not getting enough pressures at this time. We did request a download in appears that his AHI is below 5 and seems to be tolerating the CPAP well. In addition to that he does complaint of dyspnea on exertion. He has been working outside in a lot of projects and has been noticing that he has been having to stop due to his shortness of breath. Does use Advair twice a day and does have a rescue inhaler that he uses as needed. At this point he does not appear to have any significant wheezing although he may have some component of bronchospasms with the changes in the weather. Therefore, I will optimize her respiratory therapy to [facility]. The patient will go for chest x-ray and will reassess his condition in 2-3 months. 10/17/2021 the patient is here for a pulmonary follow-up visit. Since we last spoke sometime in August the patient started developing some right-sided pleuritic chest discomfort. He went to waiting at [facility]. There he did undergo a CT scan of the chest that was personally by me. Appears to have what appears to be airspace disease in the right base along with nodular densities in that area along with small pleural effusion which appears to be reactive. He was diagnosed with pneumonia the patient was treated with antibiotics. Patient did start feeling better the pain did almost completely resolved. in the meantime the patient started developing again worsening cough and chest congestion again. He is concerned the symptoms are coming back so quickly. He is also concerned because next week he is going to have hand surgery. Therefore go ahead and treated for bronchitis at home. Hold off on any prednisone since she is going to have surgery. Although I will increase his Trelegy to the maximum dose of 200. based on the CT scan findings suggesting the pneumonia and a nodular density measuring more than a cm in size will go ahead and repeat the CT scan in 3 months time to make sure there is resolution of the process. If the process is there or concerning appearance additional diagnostic interventions will be requested. In the meantime the patient continues use CPAP. The CPAP therapy has been affecting beneficial. However he still waiting for his respiratory ext replacement machine. 04/16/2022 the patient is here for a pulmonary follow-up visit. Overall he feels better from a respiratory status. He still complaining of a cough productive in nature. Fcbm-rt-kjukmopr severity. The patient did have a CT scan of the chest that was personally by me back in December demonstrating interval improvement of the airspace disease. 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 Explained to him that this could be resulting in some coughing. The patient has been struggling with his sleep apnea. The CPAP therapy has been very effective for him. However, his machine is no longer working. The patient needs to have a replacement machine at this time. He does have a dream station that he is concerned about the recall. He does not want to use any Respironics machine at this time. I will go ahead and submit a new order for a new CPAP machine. In addition to this, the patient cut his finger on his right hand while he was cleaning up last base. He had significant bleeding that was on Saturday. He was reluctant to go to the ER so therefore his but at tight pressure dressing because of the bleeding. Head and removed the dressing today and was still extensively bleeding 3 days after the event. The area was significantly open. I cleaned it with some Betadine and then Steri-Strips to hold it close in addition to some dressing. I did recommend that he go to the ER immediately to have that looked that further. He was going to do so. 08/14/2022 the patient is here for a pulmonary follow-up visit. The patient overall is feeling better. He was recently hospitalized at [facility] with congestive heart failure. His BNP was significantly elevated. His chest x-ray demonstrated perihilar congestion in bilateral pulmonary edema. His echocardiogram demonstrated a valvular disease including moderate mitral stenosis and gcoo-kn-tdplllxy aortic regurgitation. His EF was preserved. He was diuresed and had a significant amount of weight loss between 20-30 lb per the patient's statement. Patient overall is feeling better. He is still struggling with his sleep. His CPAP machine is no longer working. The patient definitely needs to CPAP because of his significant cardiovascular risk factors. He did have a home sleep study which we personally reviewed. The patient had an AHI of 58 with significant hypoxia and significant tachycardia. He does desaturate below 88% for about an hour and half. Therefore in view of his very severe study I do believe that a titration study will be warranted in order to make sure that we provide him with the best PAP therapy and to see if he still needs oxygen supplementation. Will try to request an urgent study and follow up once available. In the meantime he continues with respiratory therapy. Seems to be stable in using his medications with good adherence. 07/26/2023 the patient is here for a pulmonary follow-up visit. Overall the patient has been doing better from a respiratory status. He is using his APAP. He has been tolerating it well. We did download the machine. It appears that his AHI the 1.8. He is tolerating his mask and having less mouth dryness. He is also using the Trelegy inhale at the lower doser. No issues with thrush. No recent exacerbations. He has had significant weight loss after having a bowel rection. He is doing better at this time. 07/01/2024 the patient is here for a pulmonary follow-up visit. Overall the he patient is doing well. The CPAP therapy has been affecting beneficial. He does use it more than 4 hours a night. The patient's AHI is 5.5 although 1.5 events per hour were central. The patient's machine is set up 6-16 and he seems to require additional pressures. Therefore I did adjust the machine slightly higher at 8-18. He also has issues with his nostril on the left were closes because that he had an injury to that nostril. So therefore he has been setting up his nostril with a plastic stent like piece she keep the nostril open. I did not advise him to continue doing that. Will switch him to the PEEP 30 I mask and therefore with the nasal pillows he will be able to stent that nostril open with the actual mask. From a breathing standpoint seems to be doing well on the Trelegy. Seems not to require his rescue inhaler so therefore will continue that Trelegy daily as it is helping his respiratory symptoms. He continues to lose weight which is good otherwise he feels healthy. The last imaging study that we had was back in 2021. Therefore, in 6 months when he returns will request a chest x-ray. 03/11/2025 the patient is here for pulmonary follow-up visit. Overall the patient is doing well. He is using his CPAP every night CPAP therapy has been affecting beneficial. He does use it for more than 4 hours a night. I did download the machine his AHI is the high 4s. Therefore there some room for improvement. In part is the nasal mask is he is leaking a lot of air through his mouth. He is willing to try fullface mask. I did have a large F20 AirTouch foam mask available. Another option for him would be an F30 I mask that he could request if the F20 AirTouch is not effective for him. Hopefully it will work better decreasing the air leakage in helping him maintain a good seal. The patient also will have increased pressures will increase his maximum pressure to 20 in his minimum pressure from 8 to 9. From a respiratory status he continues use the Trelegy with good effect. The has not had to use his rescue inhaler. He will continue to do so. He needs to get an x-ray. I did give him an x-ray form in order for him to do it elsewhere once he is able to do it. Otherwise patient is without any other complaints. Will plan to follow-up in the spring. If any issues arise she can always call for further recommendations. [facility] Medical History (Updated 04/16/22 @ 13:03 by Kike Ballard MD) Pulmonary nodule Pneumonia JOSEPHINE on CPAP Asthma-COPD overlap syndrome Dyspnea Social History Patient Tobacco Use Status: Former Tobacco user Tobacco use type: Cigarette Years Smoked: 10+ years Review of Systems Const Denies daytime sleepiness, Denies night sweats, Denies stops breathing during sleep and Reports weight loss ENT Denies change in voice, Denies lip swelling, Denies mouth pain, Reports nasal congestion, Reports nasal discharge and Denies tongue swelling Card Denies chest pain and Reports dyspnea on exertion Resp Denies change in phlegm color, Denies chest congestion, Reports cough, Reports dyspnea on exertion and Denies wheezing GI Denies abdominal pain Musc Denies no additional complaints Skin/Breast Reports bleeding lesions Neuro Denies Neuro-related abnormal movements Psych Denies no additional complaints Alex/Lymph Denies easy bleeding and Denies lymphadenopathy Aller/Immun Denies lip swelling, Denies tongue swelling and Denies wheezing Physical Exam Vital Signs: Last Vital Signs Pulse 71 03/11/25 13:13 BP 120/64 03/11/25 13:13 Pulse Ox 94 03/11/25 13:13 Oxygen Delivery Method Room Air 03/11/25 13:13 BMI result Body Mass Index 32.4 Const General: alert Neck Neck: Yes normal visual inspection, Yes full ROM and Yes no lymphadenopathy Chest Chest palpation & inspection: normal inspection of the chest Resp Auscultation: no rhonchi and diminished lung sounds Cardio Rate: regular rate Rhythm: regular rhythm Heart sounds: S1 normal heart sound present and S2 normal heart sound present GI Palpation (GI): Soft to palpation and nontender Auscultation: normal bowel sounds General: Yes no CVA tenderness Back/Spine/Pelvis Back: no CVA tenderness Skin General skin exam: rashes and/or lesions noted Assessment & Plan Assessment & Plan (1) JOSEPHINE on CPAP: Code(s): G47.33 - Obstructive sleep apnea (adult) (pediatric); Z99.89 - Dependence on other enabling machines and devices Category: Medical (2) Asthma-COPD overlap syndrome: Code(s): J44.9 - Chronic obstructive pulmonary disease, unspecified Category: Medical (3) Dyspnea: Code(s): R06.00 - Dyspnea, unspecified Category: Medical Qualifiers: Dyspnea type: dyspnea on exertion Qualified Code(s): R06.00 - Dyspnea, unspecified (4) Pulmonary nodule: Code(s): R91.1 - Solitary pulmonary nodule Category: Medical Plan continue Trelegy 100 RASHAUN as needed diuresis as tolerated Low sodium diet adjusted APAP 6-16->8-18, recommenting F20 airtouch foam mask, also consider F30i CXR F/U 8-12 months Orders: Orders XR chest 2V 03/11/25 J44.9 - Chronic obstructive pulmonary disease, unspecified Coding Level of Care Code Est Pt Level 4 (20487) Complex EM visit Add On G2211 Diagnoses JOSEPHINE on CPAP G47.33; Z99.89 Asthma-COPD overlap syndrome J44.9 Dyspnea on exertion R06.00 Dyspnea type: dyspnea on exertion Pulmonary nodule R91.1 Time Spent (min) 18
--- OUTSIDE RECORDS SUMMARY | 2025-03-11 14:02 | XMS_ITS | Encounter Summary ---
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 Name Role Phone López Chaudhari DO Primary Care Provider [phone] Reason for Visit * Reason Onset Date Comments Prior Auth 03/11/2025 Repatha SureClic k 140MG/ML auto-injectors Encounter Details Date Type Department Care Team (Late st Contact Info) Description 03/11/2025 Telephone [facility] Cardiology [address] [place] [address] Saud Gardiner MD [address] [place] [address] [address] [place], [place] [phone] Prior Auth (Repatha SureClick 140MG/ML auto-injectors) Social History Tobacco Use Types Packs/Day Years Used Date Smoking Tobacco: Former Cigarettes Q uit: 07/29/2005 Smokeless Tobacco: Never Alcohol Use Standard Drinks/Week Comments Not Currently 0 (1 standard drink = 0.6 oz pur e alcohol) Interpersonal Safety Answer Date Record ed Physical Abuse 08/17/2024 Verbal Abuse 08/17/2024 Sex and Gender Information Value Date Recorded Sex Assigned at Not on file Legal Sex Male 1:28 PM EST Gender Identity Not on file Sexual Orientation Not on file documented as of this encounter Progress Notes * Vijaya Buck - 03/11/2025 9:14 AM EDT Images from the original note were not included. Repatha SureClick 140MG/ML [id number] PA Effective Date: 02/09/2025- 03/11/2026 * Vijaya Buck - 03/11/2025 9:06 AM EDT Images from the original note were not included. Repatha SureClick 140MG/ML [id number] through covermymeds PA documented in this encounter Plan of Treatment Not on file documented as of this encounter Visit Diagnoses Not on filedocumented in this encounter Care Teams Screen Printing Machine Operator Helper Relationship Specialty Start Date End Date López Chaudhari DO [address] [place] [phone] PCP - General Internal Medicine 12/21/13 documented as of this encounter
== END 2025-03-11 13:50 | disposition home or self-care (01) ==
LOC: HO.HPS 13:11
PROVIDERS: PCP Internal Medicine; Visit Provider Hospitalist
DX: G47.33 Obstructive sleep apnea (adult) (pediatric) (principal); Z99.89 Dependence on other enabling machines and devices; J44.9 Chronic obstructive pulmonary disease, unspecified; R06.00 Dyspnea, unspecified; R91.1 Solitary pulmonary nodule
CPT/HCPCS: 99214; G2211

== ENCOUNTER → 2025-03-11 13:10 | Outpatient (BNVA) | payer MEDICARE, SELFPAY | PROVIDERS: PCP Internal Medicine; Visit Provider Hospitalist | DX: G47.33 Obstructive sleep apnea (adult) (pediatric) (principal); Z99.89 Dependence on other enabling machines and devices; J44.9 Chronic obstructive pulmonary disease, unspecified; R06.00 Dyspnea, unspecified; R91.1 Solitary pulmonary nodule | CPT/HCPCS: 99212 ==